=== PATIENT | male | born 1935 | race Caucasian/White ===

== ENCOUNTER 2016-12-12 09:57 | Observation (INO) | payer OTHER ==
[~2016-12-12] VITALS: Ht 182.9 cm; Wt 87.1 kg
[~2016-12-12 09:57] MED LIST: ALLOPURINOL100 MG PO; ARICEPT10 MG PO; ASPIR 8181 MG PO; COREG 25MG TAB25 MG PO; DILTIAZEM 12HR120 MG PO; FOLIC ACID1 MG PO; HYDROCHLOROTHIA25 MG PO; LEVOTHYROXINE50 MCG PO; LIDEX EXT; LISINOPRIL40 MG PO; LOMOTIL 2.5-0.1 EACH PO; MELOXICAM7.5 MG PO; METFORMIN HCL500 MG PO; METHOTREXATE T2.5 MG PO; MULTIVITAMINS1 EAC1 PO; MYCOSTATIN CREA15 GM EXT; PROMOD 946 ML BT1 EA PO; SYNTHROID 50 M50 MCG PO; TERAZOSIN HCL2 MG PO; TRAMADOL HCL50 MG PO; VITAMIN B-121000 MC3 PO; ZANTAC 150 MG150 MG PO
[2016-12-12 11:58] LABS: HEMOGLOBIN 13.1 gm/dl (14.0-17.5); RED BLOOD COUNT 4.03 M/UL (4.20-5.50); WHITE BLOOD COUNT 8.9 K/UL (4.5-11.0)
[2016-12-12 12:24] LABS: BUN/CREATININE RATIO 13 (0-10)
[2016-12-13 06:25] LABS: HEMOGLOBIN 12.4 gm/dl (14.0-17.5); RED BLOOD COUNT 3.85 M/UL (4.20-5.50)
[2016-12-13 06:43] LABS: BUN/CREATININE RATIO 13 (0-10)
[2016-12-14 06:09] LABS: HEMOGLOBIN 11.8 gm/dl (14.0-17.5); RED BLOOD COUNT 3.68 M/UL (4.20-5.50); WHITE BLOOD COUNT 7.9 K/UL (4.5-11.0)
[2016-12-14 06:25] LABS: BUN/CREATININE RATIO 14 (0-10)
[2016-12-16 04:54] LABS: HEMOGLOBIN 11.9 gm/dl (14.0-17.5); RED BLOOD COUNT 3.73 M/UL (4.20-5.50); WHITE BLOOD COUNT 8.8 K/UL (4.5-11.0)
[2016-12-16 05:10] LABS: BUN/CREATININE RATIO 11 (0-10)
[2016-12-17] MEDS ORDERED: LEVAQUIN250 MG PO (11:46)
== END 2016-12-17 15:33 | disposition home or self-care (01) ==
LOC: ER1 09:57 → ZEROF 14:02 → MED SURG 4 14:02 → ZEROF 14:02 → MED SURG 4 17:00
PROVIDERS: Emergency Medicine; ADMIT Internal Medicine
DX: N39.0 Urinary tract infection, site not specified (principal); G93.89 Other specified disorders of brain; E87.2 Acidosis; F03.90 Unspecified dementia, unspecified severity, without behavioral disturbance, psychotic disturbance, mood disturbance, and anxiety; I48.0 Paroxysmal atrial fibrillation; I10 Essential (primary) hypertension; M62.81 Muscle weakness (generalized); R42 Dizziness and giddiness; E03.9 Hypothyroidism, unspecified; E11.9 Type 2 diabetes mellitus without complications; E78.5 Hyperlipidemia, unspecified; K21.9 Gastro-esophageal reflux disease without esophagitis; N40.0 Benign prostatic hyperplasia without lower urinary tract symptoms; D53.9 Nutritional anemia, unspecified; Z79.82 Long term (current) use of aspirin; Z87.39 Personal history of other diseases of the musculoskeletal system and connective tissue; Z79.899 Other long term (current) drug therapy; Z86.73 Personal history of transient ischemic attack (TIA), and cerebral infarction without residual deficits; Z98.52 Vasectomy status; Z88.2 Allergy status to sulfonamides; Z87.891 Personal history of nicotine dependence
CPT/HCPCS: 36415; 51702; 70450; 71010; 80048; 80053; 81001; 82550; 82553; 82962; 83036; 83605; 83735; 83874; 84484; 85025; 85027; 87040; 87077; 87086; 87186; 93005; 96374; 96375; 97110; 97116; 97530; 99285; G0378; J0696; J2405; J7030; J7050